=== PATIENT | female | born 1975 | race Caucasian/White ===

== ENCOUNTER → 2018-09-02 16:06 | Outpatient (CLI) | payer OTHER, MEDICAID, SELFPAY ==
--- NOTE | 2018-09-02 | DI.RAD.S_ITS ---
PROCEDURE: XR LUMBAR SPINE MIN 4V INDICATIONS: LOW BACK PAIN TECHNIQUE: 5 views of the lumbar spine acquired including lateral imaging during flexion and extension positioning. COMPARISON: [facility], , L-SPINE MINIMUM 4 VIEWS, 06/14/2017, 13:39. FINDINGS: Bones: 5 nonrib-bearing vertebrae are present. There is normal bony alignment superiorly but at the L5-S1 level there is grade 1-2 anterolisthesis of L5, with associated disc height reduction and moderately severe bilateral facet osteoarthritis at that level. Appreciable reduced or increased anterolisthesis of L5 on S1 is not seen through the flexion/extension and neutral lateral imaging. No vertebral body compression fractures. No suspicious bony lesions. Soft tissues: Overlying bowel gas pattern is normal. No suspicious soft tissue calcifications. Flexion/extension: There is normal range of motion, with preserved normal alignment. IMPRESSION: Stable appearing Grade I-grade 2 anterolisthesis of L5 on S1 which does not improve or worsen with both flexion and extension. This is associated with moderately severe degenerative disc disease and facet osteoarthritis at that level. More superiorly there is only mild degenerative disc disease and facet osteoarthritis, previously present. Dictated by: Robby Sutherland M.D. on 09/02/2018 at 17:00 Approved by: Robby Sutherland M.D. on 09/02/2018 at 17:02
== END ==
PROVIDERS: Family Provider Family Medicine; PCP Family Medicine; Visit Provider Family Medicine
DX: M51.37 Other intervertebral disc degeneration, lumbosacral region (principal); M47.817 Spondylosis without myelopathy or radiculopathy, lumbosacral region; M43.17 Spondylolisthesis, lumbosacral region; M54.5 Low back pain
CPT/HCPCS: 72110

== ENCOUNTER → 2019-01-23 06:08 | Outpatient (CLI) | payer OTHER, MEDICAID, SELFPAY ==
--- NOTE | 2019-01-23 | DI.MRI.S_ITS ---
PROCEDURE: MR LUMBAR SPINE WO/W CON INDICATIONS: BACK PAIN HX OF FUSION TECHNIQUE: Noncontrast sagittal T1 spin echo and T2 fast spin echo, sagittal STIR, axial T1 and T2 fast spin echo through the lumbar spine. In cases with scoliosis, additional coronal T2 fast spin echo may be performed. After the administration of contrast, sagittal and axial T1 spin echo with fat saturation through the lumbar spine. COMPARISON: [facility], CR, XR LUMBAR SPINE MIN 4V, 09/02/2018, 15:49. FINDINGS: Image quality: Mildly degraded by patient motion during image acquisition on several pulse sequences. The study remains diagnostic. Alignment and curvature: There is normal bony alignment superiorly but Grade I-2 anterolisthesis of L5 on S1 is noted again. This was present on prior plain film imaging. Marrow: Marrow is of normal overall signal. No acute vertebral body compression fractures. No suspicious marrow enhancement. Spinal cord: Conus medullaris terminates at the L1 level. Visualized spinal cord demonstrates normal signal, without suspicious enhancement. Paraspinous soft tissues: No paravertebral masses or abnormal enhancement. L1-L2: Normal appearance. L2-L3: Normal appearance. L3-L4: Normal appearance except for mild facet osteoarthritis. L4-L5: Normal appearance except for mild to moderate facet osteoarthritis, and ligamentum flavum hypertrophy that is likely greater on the right than the left. This results in asymmetric minimal spinal stenosis, right greater than left, and mild to moderate right and moderate left foraminal stenosis. There is potential for asymmetric impingement on the course of the L4 nerve roots. L5-S1: 1 appears to be prior laminectomy at L5 and bilateral osseous fusion has been performed. A metallic fixation devices are not present. There is a moderately severe degree of degenerative disc disease at L5-S1 with disc height reduction and disc desiccation and a small degree of adjacent marrow edema. There is a small disc bulge extending anteriorly, but the spinal canal at this level is not encroached upon by disc protrusion or disc herniation. There is, however, secondary foraminal stenosis at this level from prior facet osteoarthritis. Disc height reduction noted is mild to moderate.. IMPRESSION: The degenerative changes are relatively mild along the lumbosacral spine except at the facet joints from T12-L1 through L4-L5. No acute disease. At the L5-S1 level there is grade 1-2 anterolisthesis which contributes to presence of both spinal and foraminal stenosis at this level. A disc herniation is not found. Postsurgical changes appeared to represent sequela of laminectomy at L5 and posterior element osseous fusion. No inflammatory process is seen in the operative bed. Dictated by: Robby Sutherland M.D. on 01/23/2019 at 12:27 Approved by: Robby Sutherland M.D. on 01/23/2019 at 12:38
== END ==
PROVIDERS: Family Provider Family Medicine; PCP Family Medicine; Visit Provider Family Medicine
DX: M54.9 Dorsalgia, unspecified (principal); M47.816 Spondylosis without myelopathy or radiculopathy, lumbar region; M47.817 Spondylosis without myelopathy or radiculopathy, lumbosacral region; M43.17 Spondylolisthesis, lumbosacral region; M48.07 Spinal stenosis, lumbosacral region; Z98.1 Arthrodesis status
CPT/HCPCS: 72158

== ENCOUNTER 2021-10-28 10:17 | Inpatient (IN) | payer OTHER, MEDICAID, SELFPAY ==
[2021-10-28] VITALS (62 sets, daily range): BP systolic 79–131; BP diastolic 52–69; PULSE 57–98; RESP 15–42; TEMP 36.4–36.7; O2SAT 90–100; BMI 25.0
--- NOTE | 2021-10-28 10:28 | DI.RAD.S_ITS ---
PROCEDURE: XR CHEST 1V INDICATIONS: flu-like symptoms TECHNIQUE: One view of the chest was acquired. COMPARISON: [facility], , CHEST 1VW (PORTABLE), 02/28/2014, 19:22. FINDINGS: Surgical changes and devices: None. Lungs and pleura: Airspace opacity in the left lower lung zone, concerning for pneumonic infiltrate. No pleural effusions or pneumothorax. Mediastinum: Mediastinal contours appear normal. Heart size is normal. Bones and chest wall: No suspicious bony lesions. Overlying soft tissues appear unremarkable. IMPRESSION: Left lower lung zone pneumonic infiltrate. Dictated by: David Rodriguez M.D. on 10/28/2021 at 11:36 Approved by: David Rodriguez M.D. on 10/28/2021 at 11:37
[2021-10-28 10:55] LABS: Add Manual Diff / Slide Review NO; Basophils Absolute Auto 0 /uL (0-100); Basophils Percent Auto 0.1 % (0-2); Eosinophils Absolute Auto 0 /uL (0-450); Hematocrit 38.7 % (36-46); Lymphocytes Absolute Auto 600 /uL (1100-4500); Lymphocytes Percent Auto 23.9 % (25-40); Mean Corpuscular HGB Conc 33.7 % (30-36); Mean Corpuscular Hemoglobin 29.6 PG (26-34); Mean Corpuscular Volume 87.7 fL (80-100); Monocytes Absolute Auto 100 /uL (0-900); Monocytes Percent Auto 5.2 % (3-14); Neutrophils Absolute Auto 1900 /uL (1500-7000); Neutrophils Percent Auto 70.8 % (50-75); Platelet Count 93 X10^3/uL (150-400); Red Blood Cell Count 4.41 X10^6/uL (4.0-5.2); Red Cell Distribution Width 12.6 % (11.6-14.8); White Blood Cell Count 2.7 X10^3/uL (4.5-11.0)
--- NOTE | 2021-10-28 10:58 | ED.SOB ---
HPI - SOB/Dyspnea General Chief Complaint: Shortness of Breath/Dyspnea Stated Complaint: COUGHING/BODY ACHES/VOMITTING/CHEST PAIN Time Seen by Provider: 10/28/21 10:53 History of Present Illness HPI Narrative: The patient has been ill for approximately 2 weeks. She became ill shortly after Thanksgiving. She up cough. She has developed abdominal pain with nausea vomiting. She has significant decreased appetite. She denies headache, sore throat, or change in taste or smell. She has received COVID-19 vaccines. She has a cough, occasionally productive. O2 sats at triage were 90% on room air. She has no chronic lung disease. She denies chest pain. She is weak, experiencing near syncope any time she tries to stand. She has little to eat only recent days. She has upper abdominal pain exacerbated by eating, resulting nausea and vomiting. She did have urine output this morning, no dysuria. Pain is in the right upper abdomen. She has no history of chronic GI issues, she has no history of gallbladder disease. She has no associated back pain. She does have fever upon arrival. Related Data Home Medications Medication Instructions Recorded Confirmed acyclovir 400 mg tablet 1,200 mg PO BEDTIME 10/28/21 10/28/21 bupropion HCl 100 mg tablet,12 hr 100 mg PO BEDTIME 10/28/21 10/28/21 sustained-release clonazepam 0.5 mg tablet 0.5 mg PO DAILY PRN 10/28/21 10/28/21 doxycycline hyclate 100 mg tablet 200 mg PO BEDTIME 10/28/21 10/28/21 lamotrigine 25 mg tablet 100 mg PO BEDTIME 10/28/21 10/28/21 meloxicam 7.5 mg tablet 7.5 mg PO DAILY PRN 10/28/21 10/28/21 paroxetine HCl 40 mg tablet 40 mg PO BEDTIME 10/28/21 10/28/21 trazodone 50 mg tablet 50 mg PO BEDTIME 10/28/21 10/28/21 Allergies Allergy/AdvReac Type Severity Reaction Status Date / Time Opioids-Meperidine and Allergy Severe Vomiting Verified 10/28/21 11:03 Related Review of Systems Constitutional Constitutional: Reports body ache(s), Denies chills, Denies excessive sweating, Denies fever(s), Denies headache(s), Reports lethargy, Reports malaise and Reports weakness Eyes Eyes: Denies blurry vision and Denies change in vision ENT Ears, Nose, Mouth, and Throat: Denies vertigo, Reports dizziness, Denies facial pain, Denies headache(s) and Denies sore throat Cardiovascular Cardiovascular: Denies chest pain, Denies rapid heart rate and Reports dyspnea Respiratory Respiratory: Reports chest congestion, Reports cough and Reports dyspnea Gastrointestinal Gastrointestinal: Reports abdominal pain, Denies hematochezia, Denies change in bowel habits, Reports nausea, Reports vomiting and Reports other (Loss of appetite) Genitourinary Genitourinary: Denies dysuria Musculoskeletal Musculoskeletal: Reports arthralgias, Reports myalgias, Denies numbness and Reports stiffness Neurologic Neurologic: Denies confusion, Denies vertigo, Reports dizziness, Denies headache(s), Denies numbness and Reports weakness Psychiatric Psychiatric: Denies anxiety, Denies confusion and Denies depression Endocrine Endocrine: Denies excessive sweating and Reports other (No significant recent weight loss) Hematologic/Lymphatic On Anticoagulants: No Patient History Medical History (Updated 10/28/21 @ 19:58 by Woo Poon MD) Depression Surgical History History of carpal tunnel repair History of spinal fusion Status post tonsillectomy and adenoidectomy Social History Smoking Status: Current every day smoker Exam Initial Vital Signs Initial Vital Signs: Vital Signs Temperature 98.1 F 10/28/21 10:20 Pulse Rate 94 H 10/28/21 10:20 Respiratory Rate 38 H 10/28/21 10:20 Blood Pressure 115/67 10/28/21 10:20 Pulse Oximetry 90 L 10/28/21 10:20 Const General: cooperative, acute distress and ill appearing [facility] Head: normocephalic, atraumatic and No scalp tenderness Ears: TM's normal bilaterally Nose: external nose normal Face and sinus: normal facial exam Mouth: lip normal and other (Dry oral mucosa) Eyes General: appearance normal, both eyes and all related structures Pupils: PERRL EOM: EOM intact bilaterally Neck Neck: normal visual inspection, No lymphadenopathy and No JVD Chest Chest: normal inspection of the chest and No crepitus Resp Effort & Inspection: normal respiratory effort and no respiratory distress Auscultation: clear to auscultation bilaterally Cardio Palpation: normal PMI Rate: regular rate Rhythm: regular rhythm Heart Sounds: S1 normal and S2 normal GI Inspection: normal to inspection Palpation: soft, No hepatomegaly and tender (Right upper quadrant tenderness, without guarding or rebound.) Percussion: normal to percussion Auscultation: normal bowel sounds Back/Spine/Pelvis Back: normal to inspection and No back tenderness Skin General: no rashes or lesions noted Neuro General: patient alert, patient awake, patient oriented x3 and no focal motor deficits Extrem General: normal to inspection, full ROM, no pedal edema and no calf tenderness Psych Appearance: disheveled and other (Appears ill. Cooperative with evaluation.) Course Course Course Narrative: The patient O2 sats 90% on room air upon arrival. COVID testing is positive. Chest x-ray was consistent with infiltrate. CT more specifically suggestive viral infiltrate consistent with COVID 19 infection. Her WBC count is low. Lactic acid and procalcitonin are normal. LFTs are normal. She was given IV fluids at 2:50 a.m. prior due to low blood pressure and clinical dehydration. Her O2 sats increased from 90-97% on 2 L nasal cannula. She requires admission to the hypoxia, and the severe dehydration status. Rehydration is as low paced due to COVID. Blood pressure ranged from 80 to 100s systolic. She is not tachycardic. COVID treatment was initiated in the ER. I gave her dexamethasone, the 1st dose of remdesivir, and continued IV hydration. Hospitalist consult contacted, accepted the patient for admission. Orders Ordered: ED Orders 10/28/21 10:54 Test Urine Stat Urinalysis and Microscopic Stat Urine Culture Stat 10/28/21 10:55 Lipase Stat 10/28/21 12:06 CT angio chest PE protocol Stat Acetaminophen (Acetaminophen 325 Mg Tablet) 650 mg PO Q6HR PRN PRN Reason: Fever/Mild Pain (1-3) Acyclovir (Acyclovir 400 Mg Tablet) 1,200 mg PO BEDTIME JESSICA Bupropion HCl (Bupropion Sr 100 Mg Tab) 100 mg PO BEDTIME JESSICA Clonazepam (Clonazepam 0.5 Mg Tablet) 0.5 mg PO DAILY PRN PRN Reason: Anxiety Dexamethasone (Dexamethasone 10 Mg/Ml Vial) 6 mg IV DAILY [facility] Enoxaparin Sodium (Enoxaparin 40 Mg/0.4 Ml Syringe) 40 mg SUBCUT DAILY [facility] Remdesivir 100 mg/ Sodium (Chloride) 250 mls @ 250 mls/hr IV DAILY@1500 JESSICA Stop: 11/01/21 15:59 Lamotrigine (Lamotrigine 100 Mg Tablet) 100 mg PO BEDTIME [facility] Ondansetron HCl (Ondansetron 4 Mg/2 Ml Inj) 4 mg IV Q8HR PRN PRN Reason: Nausea And Vomiting Paroxetine HCl (Paroxetine 20 Mg Tablet) 40 mg PO BEDTIME [facility] Discontinued Medications Acetaminophen (Acetaminophen 325 Mg Tablet) 975 mg PO NOW ONE Stop: 10/28/21 11:18 Last Admin: 10/28/21 11:54 Dose: 975 mg Documented by: CATHY Dexamethasone (Dexamethasone 10 Mg/Ml Vial) 10 mg IV NOW ONE Stop: 10/28/21 14:13 Last Admin: 10/28/21 14:49 Dose: 10 mg Documented by: LUPILLOOR Sodium Chloride (Normal Saline 0.9%) 1,000 mls @ 250 mls/hr IV CONT [facility] Last Infusion: 10/28/21 14:57 Dose: 0 mls/hr Documented by: Admin: 10/28/21 11:00 Dose: 250 mls/hr Documented by: RAYNE Remdesivir 200 mg/ Sodium (Chloride) 250 mls @ 250 mls/hr IV NOW ONE Stop: 10/28/21 15:11 Last Infusion: 10/28/21 15:56 Dose: 0 mls/hr Documented by: Admin: 10/28/21 14:48 Dose: 250 mls/hr Documented by: CATHY Ketorolac Tromethamine (Ketorolac 30 Mg/Ml Vial) 15 mg IV NOW ONE Stop: 10/28/21 14:13 Last Admin: 10/28/21 14:49 Dose: 15 mg Documented by: CATHY Ondansetron HCl (Ondansetron 4 Mg/2 Ml Inj) 4 mg IV NOW ONE Stop: 10/28/21 11:18 Last Admin: 10/28/21 11:27 Dose: 4 mg Documented by: CATHY Vital Signs Vital signs: Vital Signs - 8 hr 10/28/21 11:50 10/28/21 11:55 10/28/21 12:00 Pulse Rate 80 80 82 Respiratory Rate 31 H 26 H 25 H Blood Pressure 100/59 L 99/58 L Pulse Oximetry 100 99 100 10/28/21 12:03 10/28/21 12:05 10/28/21 12:10 Pulse Rate 82 81 78 Respiratory Rate 28 H 21 28 H Blood Pressure 107/58 L 106/60 110/64 Pulse Oximetry 98 100 100 10/28/21 12:15 10/28/21 12:20 10/28/21 12:25 Pulse Rate 79 76 77 Respiratory Rate 27 H 24 26 H Blood Pressure 109/67 109/67 131/62 Pulse Oximetry 98 97 97 10/28/21 12:30 10/28/21 12:35 10/28/21 12:40 Pulse Rate 75 80 79 Respiratory Rate 32 H 20 22 Blood Pressure 109/62 106/62 103/60 Pulse Oximetry 97 98 98 10/28/21 12:45 10/28/21 12:59 10/28/21 13:00 Pulse Rate 80 74 72 Respiratory Rate 24 24 Blood Pressure 105/62 Pulse Oximetry 98 97 98 10/28/21 13:04 10/28/21 13:10 10/28/21 13:15 Pulse Rate 71 71 80 Respiratory Rate 18 23 23 Blood Pressure 103/55 L 107/59 L Pulse Oximetry 98 98 10/28/21 13:20 10/28/21 13:30 10/28/21 13:40 Pulse Rate 69 72 72 Respiratory Rate 30 H 24 22 Blood Pressure 99/63 Pulse Oximetry 98 98 98 10/28/21 13:45 10/28/21 13:50 10/28/21 14:00 Pulse Rate 70 70 68 Respiratory Rate 22 21 23 Blood Pressure 99/59 L 91/52 L Pulse Oximetry 98 99 99 10/28/21 14:10 Pulse Rate 66 Respiratory Rate 23 Blood Pressure Pulse Oximetry 99 MDM - SOB/Dyspnea Lab Data Result diagrams: 10/28/21 10:30 10/28/21 10:30 Labs: Lab Results 10/28/21 10/28/21 10/28/21 Range/Units 10:30 10:30 10:30 WBC 2.7 L (4.5-11.0) X10^3/uL RBC 4.41 (4.0-5.2) X10^6/uL Hgb 13.0 (12.0-16.0) g/dL Hct 38.7 (36-46) % MCV 87.7 (80-100) fL MCH 29.6 (26-34) PG MCHC 33.7 (30-36) % RDW 12.6 (11.6-14.8) % Plt Count 93 L (150-400) X10^3/uL Neut % (Auto) 70.8 (50-75) % Lymph % (Auto) 23.9 L (25-40) % [place] % (Auto) 5.2 (3-14) % Eos % (Auto) 0.0 L (2-4) % Baso % (Auto) 0.1 (0-2) % Neut # (Auto) 1900 (8656-2021) /uL Lymph # (Auto) 600 L (4653-3415) /uL [place] # (Auto) 100 (0-900) /uL Eos # (Auto) 0 (0-450) /uL Baso # (Auto) 0 (0-100) /uL D-Dimer 318 H (<230) ng/mL Sodium 136 L (137-145) mmol/L Potassium 3.8 (3.4-5.1) mmol/L Chloride 101 (98-107) mmol/L Carbon Dioxide 25 (22-32) mmol/L BUN 14 (7-17) mg/dL Creatinine 0.69 (0.52-1.04) mg/dL Estimated GFR > 60.0 (>60) mL/min BUN/Creatinine Ratio 20.3 (6-22) Glucose 107 H (70-100) mg/dL Lactate (0.7-2.1) mmol/L Calcium 8.7 (8.4-10.2) mg/dL Ferritin 492 H (6-137) ng/mL Total Bilirubin 0.5 (0.2-1.3) mg/dL AST 53 H (14-36) IU/L ALT 24 (<35) IU/L Alkaline Phosphatase 46 (38-126) U/L Lactate Dehydrogenase (313-618) U/L Total Creatine Kinase 57 (30-135) U/L CK-MB (CK-2) TNP CK-MB (CK-2) Rel Index TNP Troponin I < 0.012 (0.01-0.034) ng/mL C-Reactive Protein 2.5 H (<1.0) mg/dL NT-Pro-B Natriuret Pep 31 (<125) pg/mL Total Protein 7.5 (6.3-8.2) g/dL Albumin 4.3 (3.5-5.0) g/dL Globulin 3.2 (1.7-4.1) g/dL Albumin/Globulin Ratio 1.3 (1.0-2.8) Lipase (23-300) U/L Procalcitonin 0.08 (<0.5) ng/mL Urine Color Urine Appearance Urine pH (4.5-8.0) Ur Specific [place] (1.000-1.035) Urine Protein (Negative) Urine Glucose (UA) (Negative) g/dL Urine Ketones (NEGATIVE) Urine Occult Blood (Negative) Urine Nitrate (Negative) Urine Bilirubin (NEGATIVE) Urine Urobilinogen (0.2) E.U./dL Ur Leukocyte Esterase (NEGATIVE) Urine RBC (0-5/HPF) Urine WBC (0-5/HPF) Ur Squamous Epith Cells (0-5/HPF) Amorphous Sediment Urine Bacteria (None) Urine Mucus (Negative) Ur Culture Indicated? Urine Test (Negative) SARS-CoV-2 (PCR) (Negative) 10/28/21 10/28/21 10/28/21 Range/Units 10:30 10:30 10:30 WBC (4.5-11.0) X10^3/uL RBC (4.0-5.2) X10^6/uL Hgb (12.0-16.0) g/dL Hct (36-46) % MCV (80-100) fL MCH (26-34) PG MCHC (30-36) % RDW (11.6-14.8) % Plt Count (150-400) X10^3/uL Neut % (Auto) (50-75) % Lymph % (Auto) (25-40) % [place] % (Auto) (3-14) % Eos % (Auto) (2-4) % Baso % (Auto) (0-2) % Neut # (Auto) (6981-9400) /uL Lymph # (Auto) (0248-4520) /uL [place] # (Auto) (0-900) /uL Eos # (Auto) (0-450) /uL Baso # (Auto) (0-100) /uL D-Dimer (<230) ng/mL Sodium (137-145) mmol/L Potassium (3.4-5.1) mmol/L Chloride (98-107) mmol/L Carbon Dioxide (22-32) mmol/L BUN (7-17) mg/dL Creatinine (0.52-1.04) mg/dL Estimated GFR (>60) mL/min BUN/Creatinine Ratio (6-22) Glucose (70-100) mg/dL Lactate 1.0 (0.7-2.1) mmol/L Calcium (8.4-10.2) mg/dL Ferritin (6-137) ng/mL Total Bilirubin (0.2-1.3) mg/dL AST (14-36) IU/L ALT (<35) IU/L Alkaline Phosphatase (38-126) U/L Lactate Dehydrogenase 735 H (313-618) U/L Total Creatine Kinase (30-135) U/L CK-MB (CK-2) CK-MB (CK-2) Rel Index Troponin I (0.01-0.034) ng/mL C-Reactive Protein (<1.0) mg/dL NT-Pro-B Natriuret Pep (<125) pg/mL Total Protein (6.3-8.2) g/dL Albumin (3.5-5.0) g/dL Globulin (1.7-4.1) g/dL Albumin/Globulin Ratio (1.0-2.8) Lipase (23-300) U/L Procalcitonin (<0.5) ng/mL Urine Color Urine Appearance Urine pH (4.5-8.0) Ur Specific [place] (1.000-1.035) Urine Protein (Negative) Urine Glucose (UA) (Negative) g/dL Urine Ketones (NEGATIVE) Urine Occult Blood (Negative) Urine Nitrate (Negative) Urine Bilirubin (NEGATIVE) Urine Urobilinogen (0.2) E.U./dL Ur Leukocyte Esterase (NEGATIVE) Urine RBC (0-5/HPF) Urine WBC (0-5/HPF) Ur Squamous Epith Cells (0-5/HPF) Amorphous Sediment Urine Bacteria (None) Urine Mucus (Negative) Ur Culture Indicated? Urine Test (Negative) SARS-CoV-2 (PCR) Positive H (Negative) 10/28/21 10/28/21 10/28/21 Range/Units 10:30 10:54 10:54 WBC (4.5-11.0) X10^3/uL RBC (4.0-5.2) X10^6/uL Hgb (12.0-16.0) g/dL Hct (36-46) % MCV (80-100) fL MCH (26-34) PG MCHC (30-36) % RDW (11.6-14.8) % Plt Count (150-400) X10^3/uL Neut % (Auto) (50-75) % Lymph % (Auto) (25-40) % [place] % (Auto) (3-14) % Eos % (Auto) (2-4) % Baso % (Auto) (0-2) % Neut # (Auto) (0979-1668) /uL Lymph # (Auto) (3950-7437) /uL [place] # (Auto) (0-900) /uL Eos # (Auto) (0-450) /uL Baso # (Auto) (0-100) /uL D-Dimer (<230) ng/mL Sodium (137-145) mmol/L Potassium (3.4-5.1) mmol/L Chloride (98-107) mmol/L Carbon Dioxide (22-32) mmol/L BUN (7-17) mg/dL Creatinine (0.52-1.04) mg/dL Estimated GFR (>60) mL/min BUN/Creatinine Ratio (6-22) Glucose (70-100) mg/dL Lactate (0.7-2.1) mmol/L Calcium (8.4-10.2) mg/dL Ferritin (6-137) ng/mL Total Bilirubin (0.2-1.3) mg/dL AST (14-36) IU/L ALT (<35) IU/L Alkaline Phosphatase (38-126) U/L Lactate Dehydrogenase (313-618) U/L Total Creatine Kinase (30-135) U/L CK-MB (CK-2) CK-MB (CK-2) Rel Index Troponin I (0.01-0.034) ng/mL C-Reactive Protein (<1.0) mg/dL NT-Pro-B Natriuret Pep (<125) pg/mL Total Protein (6.3-8.2) g/dL Albumin (3.5-5.0) g/dL Globulin (1.7-4.1) g/dL Albumin/Globulin Ratio (1.0-2.8) Lipase (23-300) U/L Procalcitonin (<0.5) ng/mL Urine Color Yellow Urine Appearance Clear Urine pH 6.5 (4.5-8.0) Ur Specific [place] 1.020 (1.000-1.035) Urine Protein 2+ H (Negative) Urine Glucose (UA) Negative (Negative) g/dL Urine Ketones 1+ H (NEGATIVE) Urine Occult Blood Negative (Negative) Urine Nitrate Negative (Negative) Urine Bilirubin Negative (NEGATIVE) Urine Urobilinogen 1.0 (0.2) E.U./dL Ur Leukocyte Esterase Trace H (NEGATIVE) Urine RBC None seen (0-5/HPF) Urine WBC 1-5/hpf (0-5/HPF) Ur Squamous Epith Cells 0-1 /hpf (0-5/HPF) Amorphous Sediment 1+ Urine Bacteria Occasional (0-1) (None) Urine Mucus 3+ H (Negative) Ur Culture Indicated? Specimen cultured Urine Test Negative (Negative) SARS-CoV-2 (PCR) Positive H (Negative) 10/28/21 Range/Units 10:55 WBC (4.5-11.0) X10^3/uL RBC (4.0-5.2) X10^6/uL Hgb (12.0-16.0) g/dL Hct (36-46) % MCV (80-100) fL MCH (26-34) PG MCHC (30-36) % RDW (11.6-14.8) % Plt Count (150-400) X10^3/uL Neut % (Auto) (50-75) % Lymph % (Auto) (25-40) % [place] % (Auto) (3-14) % Eos % (Auto) (2-4) % Baso % (Auto) (0-2) % Neut # (Auto) (1501-8516) /uL Lymph # (Auto) (0946-5493) /uL [place] # (Auto) (0-900) /uL Eos # (Auto) (0-450) /uL Baso # (Auto) (0-100) /uL D-Dimer (<230) ng/mL Sodium (137-145) mmol/L Potassium (3.4-5.1) mmol/L Chloride (98-107) mmol/L Carbon Dioxide (22-32) mmol/L BUN (7-17) mg/dL Creatinine (0.52-1.04) mg/dL Estimated GFR (>60) mL/min BUN/Creatinine Ratio (6-22) Glucose (70-100) mg/dL Lactate (0.7-2.1) mmol/L Calcium (8.4-10.2) mg/dL Ferritin (6-137) ng/mL Total Bilirubin (0.2-1.3) mg/dL AST (14-36) IU/L ALT (<35) IU/L Alkaline Phosphatase (38-126) U/L Lactate Dehydrogenase (313-618) U/L Total Creatine Kinase (30-135) U/L CK-MB (CK-2) CK-MB (CK-2) Rel Index Troponin I (0.01-0.034) ng/mL C-Reactive Protein (<1.0) mg/dL NT-Pro-B Natriuret Pep (<125) pg/mL Total Protein (6.3-8.2) g/dL Albumin (3.5-5.0) g/dL Globulin (1.7-4.1) g/dL Albumin/Globulin Ratio (1.0-2.8) Lipase 394 H (23-300) U/L Procalcitonin (<0.5) ng/mL Urine Color Urine Appearance Urine pH (4.5-8.0) Ur Specific [place] (1.000-1.035) Urine Protein (Negative) Urine Glucose (UA) (Negative) g/dL Urine Ketones (NEGATIVE) Urine Occult Blood (Negative) Urine Nitrate (Negative) Urine Bilirubin (NEGATIVE) Urine Urobilinogen (0.2) E.U./dL Ur Leukocyte Esterase (NEGATIVE) Urine RBC (0-5/HPF) Urine WBC (0-5/HPF) Ur Squamous Epith Cells (0-5/HPF) Amorphous Sediment Urine Bacteria (None) Urine Mucus (Negative) Ur Culture Indicated? Urine Test (Negative) SARS-CoV-2 (PCR) (Negative) Imaging Data Chest x-ray: Radiologist's Impression: [address] [address] XRay Report Signed Patient: Krista Morales MR#: [id number] : 1975 Acct:[id number] Age/Sex: 46 / F Date of Service: 10/28/21 Loc: ED Accession Number: [id number] ?? Procedure: XR chest 1V Ordering Provider: Woo Poon MD PROCEDURE:? XR CHEST 1V ? INDICATIONS:? flu-like symptoms ? TECHNIQUE:? One view of the chest was acquired.? ? COMPARISON:? formerly [facility], CHEST 1VW (PORTABLE), 02/28/2014, 19:22. ? FINDINGS:? ? Surgical changes and devices:? None.? ? Lungs and pleura:? Airspace opacity in the left lower lung zone, concerning for pneumonic infiltrate.? No pleural effusions or pneumothorax.? ? Mediastinum:? Mediastinal contours appear normal.? Heart size is normal.? ? Bones and chest wall:? No suspicious bony lesions.? Overlying soft tissues appear unremarkable.? ? IMPRESSION:? Left lower lung zone pneumonic infiltrate. ? ? Dictated by: David Rodriguez M.D. on 10/28/2021 at 11:36 ? ? Approved by: David Rodriguez M.D. on 10/28/2021 at 11:37?? CT scan - chest: Radiologist's Impression: [address] [address] XRay Report Signed Patient: Krista Morales MR#: [id number] : 1975 Acct:[id number] Age/Sex: 46 / F Date of Service: 10/28/21 Loc: ED Accession Number: [id number] ?? Procedure: XR chest 1V Ordering Provider: Woo Poon MD PROCEDURE:? XR CHEST 1V ? INDICATIONS:? flu-like symptoms ? TECHNIQUE:? One view of the chest was acquired.? ? COMPARISON:? formerly [facility], CHEST 1VW (PORTABLE), 02/28/2014, 19:22. ? FINDINGS:? ? Surgical changes and devices:? None.? ? Lungs and pleura:? Airspace opacity in the left lower lung zone, concerning for pneumonic infiltrate.? No pleural effusions or pneumothorax.? ? Mediastinum:? Mediastinal contours appear normal.? Heart size is normal.? ? Bones and chest wall:? No suspicious bony lesions.? Overlying soft tissues appear unremarkable.? ? IMPRESSION:? Left lower lung zone pneumonic infiltrate. ? ? Dictated by: David Rodriguez M.D. on 10/28/2021 at 11:36 ? ? Approved by: David Rodriguez M.D. on 10/28/2021 at 11:37?? Critical Care Time Critical Care Time Critical Care Time: Yes Total Critical Care Time: 45 Attestation: Critical care time included the initial assessment of the patient, as well as reassessments. Medical records are reviewed. X-ray and lab data was reviewed, multiple clinical decisions were made. The patient was informed of the clinical needs. The situation was discussed with the admitting hospitalist. Discharge Plan Departure Patient Disposition: Admitted As Inpatient Clinical Impression: COVID-19, Acute dehydration Admit Date/Time: 10/28/21 14:13 Admit Provider: Nathen Grady
[2021-10-28 10:59] LABS: COVID19 -Nasal RAPID POSITIVE (Negative)
[2021-10-28] MEDS: SODIUM CHLORIDE 0.9% 1,000 ML 250 ML IV (11:00)
[2021-10-28 11:01] LABS: D Dimer 318 ng/mL (<230)
[2021-10-28 11:04] LABS: Lactate Dehydrogenase 735 U/L (313-618)
[2021-10-28 11:06] LABS: Alanine Aminotransferase 24 IU/L (<35); Albumin 4.3 g/dL (3.5-5.0); Albumin Globulin Ratio 1.3 (1.0-2.8); Alkaline Phosphatase 46 U/L (38-126); Aspartate Aminotransferase 53 IU/L (14-36); BUN Creatinine Ratio 20.3 (6-22); Bilirubin Total 0.5 mg/dL (0.2-1.3); Blood Urea Nitrogen 14 mg/dL (7-17); C-Reactive Protein Quant 2.5 mg/dL (<1.0); Calcium 8.7 mg/dL (8.4-10.2); Carbon Dioxide 25 mmol/L (22-32); Chloride 101 mmol/L (98-107); Creatine Kinase 57 U/L (30-135); Estimated Glomerular Filt Rate > 60.0 mL/min (>60); Globulin 3.2 g/dL (1.7-4.1); Glucose 107 mg/dL (70-100); HEMOLYSIS < 15 (0-50); Potassium 3.8 mmol/L (3.4-5.1); Sodium 136 mmol/L (137-145); Total Protein 7.5 g/dL (6.3-8.2)
[2021-10-28 11:15] LABS: NT-proBNP (BNP-Adult 18+) 31 pg/mL (<125); Troponin I < 0.012 ng/mL (0.01-0.034)
[2021-10-28 11:20] LABS: Procalcitonin 0.08 ng/mL (<0.5)
[2021-10-28 11:24] LABS: Lipase 394 U/L (23-300)
[2021-10-28] MEDS: ONDANSETRON 4 MG/2 ML INJ IV (11:27)
[2021-10-28 11:32] LABS: COVID19 - ADMIT (NP swab/PCR) POSITIVE (Negative)
[2021-10-28 11:38] LABS: Ferritin 492 ng/mL (6-137)
[2021-10-28] MEDS: ACETAMINOPHEN 325 MG TABLET 975 MG PO (11:54)
--- NOTE | 2021-10-28 12:06 | DI.CT.S_ITS ---
PROCEDURE: CT ANGIO CHEST PE PROTOCOL INDICATIONS: Elevated D-dimer. COVID positive. TECHNIQUE: After the administration of intravenous contrast, 2 mm thick sections acquired from the pulmonary apices to the posterior costophrenic angles. 3-dimensional maximum intensity projection (MIP) coronal and sagittal reformats were then acquired through the thorax. For radiation dose reduction, the following was used: automated exposure control, adjustment of mA and/or kV according to patient size. COMPARISON: None. FINDINGS: Image quality: Excellent. Pulmonary arteries: Pulmonary arteries are normal in size, and demonstrate no intraluminal filling defects to suggest central pulmonary embolism. Lungs and pleura: Patchy consolidation and ground-glass opacities noted in the periphery of the lungs bilaterally. No pleural effusions or pneumothorax. Central and peripheral airways are patent. Mediastinum: Heart size is normal, without pericardial effusion. No mediastinal or hilar adenopathy. Thoracic aorta is normal in caliber and enhancement. Esophagus is normal in caliber, without hiatal hernia. Bones and chest wall: No suspicious bony lesions. Ribs and thoracic spine appear intact throughout. Thyroid gland is within normal limits where visualized. No axillary or supraclavicular adenopathy. Abdomen: Visualized upper abdominal solid organs appear normal in the early arterial phase of enhancement. IMPRESSION: 1. No pulmonary embolus. 2. Bilateral lung patchy ground-glass opacities and consolidation compatible with atypical/viral pneumonia. Dictated by: Tamy Alcantara MD, PhD on 10/28/2021 at 13:05 Approved by: Tamy Alcantara MD, PhD on 10/28/2021 at 13:08
[2021-10-28 12:29] LABS: Appearance Urine UA CLEAR; Bilirubin Urine UA NEGATIVE (NEGATIVE); Color Urine UA YELLOW; Glucose Urine UA NEGATIVE (Negative); Ketones Urine UA 1+ (NEGATIVE); Leukocyte Esterase Urine UA TRACE (NEGATIVE); Nitrite Urine UA NEGATIVE (Negative); Occult Blood Urine UA NEGATIVE (Negative); Protein Urine UA 2+ (Negative)
[2021-10-28 12:30] LABS: pH Urine UA 6.5 (4.5-8.0)
[2021-10-28 12:32] LABS: Pregnancy Test Urine Negative (Negative)
[2021-10-28 12:42] LABS: Amorphous Sediment Urine 1+; Bacteria Urine Occasional (0-1); Culture Indicated Urine Specimen Cultured; Mucus Urine 3+ (Negative); RBC Urine None Seen (0-5/HPF); Squamous Epithelial Cell Urine 0-1 /HPF (0-5/HPF); WBC Urine 1-5/HPF (0-5/HPF)
[2021-10-28] MEDS: REMDESIVIR 200 MG in SODIUM CHLORIDE 0.9% 210 ML 250 ML IV (14:48)
[2021-10-28] MEDS: KETOROLAC 30 MG/ML VIAL 15 MG IV (14:49)
[2021-10-28] MEDS: DEXAMETHASONE 10 MG/ML VIAL IV (14:49)
--- NOTE | 2021-10-28 15:25 | P.HP_ITS ---
History of Present Illness History of Present Illness Date Patient Seen: 10/28/21 Time Patient Seen: 14:30 Chief complaint: COUGHING/BODY ACHES/VOMITTING/CHEST PAIN Narrative: Ms. Twin Chakraborty is a 46W with PMH depression who comes in with shortness of breath. She is unvaccinated against COVID. She was exposed to COVID over . She became ill shortly after that. She developed abdominal pain, cough, decreased appetite, malaise. Over the last few days she developed shortness of breath, she feels dizzy when standing. In the ED workup was done, vitals notable for tachypnea, O2 sats in high 80s to low 90s. Blood pressure slightly low in the 90s systolic. Labs notable for WBC 2.7, platelets 93, craetinine 0.69. Procal 0.08. Lactate 1.0. COVID positive. CTA chest showed no PE, but did show bilateral interstitial infiltrates. She was ordered for IV fluids, dexamethasone and remdesivir and admitted for further treatment. Family history: Patient denies any medical issues in the family Patient History Surgical History History of carpal tunnel repair History of spinal fusion Status post tonsillectomy and adenoidectomy Family & Social History Safety & Behavioral: Feels Safe in Current Yes Environment Been Physically Hurt or No Threatened By a Person Tobacco & Substance use: Smoking Status Current every day smoker alcohol intake frequency 0-2 drinks per day Substance Use Type does not use Meds Home Medications and Allergies Home Medications Medication Instructions Recorded Confirmed Type acyclovir 400 mg tablet 1,200 mg PO BEDTIME 10/28/21 10/28/21 History bupropion HCl 100 mg tablet,12 hr 100 mg PO BEDTIME 10/28/21 10/28/21 History sustained-release clonazepam 0.5 mg tablet 0.5 mg PO DAILY PRN 10/28/21 10/28/21 History doxycycline hyclate 100 mg tablet 200 mg PO BEDTIME 10/28/21 10/28/21 History lamotrigine 25 mg tablet 100 mg PO BEDTIME 10/28/21 10/28/21 History meloxicam 7.5 mg tablet 7.5 mg PO DAILY PRN 10/28/21 10/28/21 History paroxetine HCl 40 mg tablet 40 mg PO BEDTIME 10/28/21 10/28/21 History trazodone 50 mg tablet 50 mg PO BEDTIME 10/28/21 10/28/21 History Allergies Allergy/AdvReac Type Severity Reaction Status Date / Time Opioids-Meperidine and Allergy Severe Vomiting Verified 10/28/21 11:03 Related Review of Systems Review of Systems Narrative: 14 systems reviewed and negative aside from HPI Exam Vital Signs (past 8 hours): - 10/28/21 10:20 10/28/21 10:40 10/28/21 10:45 Temperature 98.1 F Pulse Rate 94 H 96 H 96 H Respiratory Rate 38 H 34 H 34 H Blood Pressure 115/67 79/63 L 88/54 L Pulse Oximetry 90 L 96 96 10/28/21 11:05 10/28/21 11:10 10/28/21 11:15 Temperature Pulse Rate 79 83 81 Respiratory Rate 30 H 29 H 24 Blood Pressure 113/69 97/55 L 95/54 L Pulse Oximetry 97 99 100 10/28/21 11:20 10/28/21 11:25 10/28/21 11:30 Temperature Pulse Rate 78 79 98 H Respiratory Rate 30 H 15 42 H Blood Pressure 99/55 L 109/63 106/68 Pulse Oximetry 100 99 95 10/28/21 11:35 10/28/21 11:40 10/28/21 11:45 Temperature Pulse Rate 81 78 80 Respiratory Rate 18 22 15 Blood Pressure 109/62 109/64 102/57 L Pulse Oximetry 99 98 99 10/28/21 11:50 10/28/21 11:55 10/28/21 12:00 Temperature Pulse Rate 80 80 82 Respiratory Rate 31 H 26 H 25 H Blood Pressure 100/59 L 99/58 L Pulse Oximetry 100 99 100 10/28/21 12:03 10/28/21 12:05 10/28/21 12:10 Temperature Pulse Rate 82 81 78 Respiratory Rate 28 H 21 28 H Blood Pressure 107/58 L 106/60 110/64 Pulse Oximetry 98 100 100 10/28/21 12:15 10/28/21 12:20 10/28/21 12:25 Temperature Pulse Rate 79 76 77 Respiratory Rate 27 H 24 26 H Blood Pressure 109/67 109/67 131/62 Pulse Oximetry 98 97 97 10/28/21 12:30 10/28/21 12:35 10/28/21 12:40 Temperature Pulse Rate 75 80 79 Respiratory Rate 32 H 20 22 Blood Pressure 109/62 106/62 103/60 Pulse Oximetry 97 98 98 10/28/21 12:45 10/28/21 12:59 10/28/21 13:00 Temperature Pulse Rate 80 74 72 Respiratory Rate 24 24 Blood Pressure 105/62 Pulse Oximetry 98 97 98 10/28/21 13:04 10/28/21 13:10 10/28/21 13:15 Temperature Pulse Rate 71 71 80 Respiratory Rate 18 23 23 Blood Pressure 103/55 L 107/59 L Pulse Oximetry 98 98 10/28/21 13:20 10/28/21 13:30 10/28/21 13:40 Temperature Pulse Rate 69 72 72 Respiratory Rate 30 H 24 22 Blood Pressure 99/63 Pulse Oximetry 98 98 98 Oxygen Delivery Method Room Air Oxygen Flow Rate 2 Narrative Exam Narrative: GEN: mild distress, ill appearing HEENT: moist mucous membranes, PERRL NECK: trachea midline, no JVD PULM: poor air movement bilaterally CV: regular rate and rhythm, no murmurs ABD: soft, nontender, nondistended, no organomegaly, normal bowel sounds EXT: warm and well perfused with no edema SKIN: no rashes noted NEURO: awake, alert, oriented, no focal deficits Objective Labs Result Diagrams: 10/28/21 10:30 10/28/21 10:30 Labs: Laboratory Results - last 24 hr 10/28/21 10/28/21 10/28/21 10:30 10:30 10:30 WBC 2.7 L RBC 4.41 Hgb 13.0 Hct 38.7 MCV 87.7 MCH 29.6 MCHC 33.7 RDW 12.6 Plt Count 93 L Neut % (Auto) 70.8 Lymph % (Auto) 23.9 L [place] % (Auto) 5.2 Eos % (Auto) 0.0 L Baso % (Auto) 0.1 Neut # (Auto) 1900 Lymph # (Auto) 600 L [place] # (Auto) 100 Eos # (Auto) 0 Baso # (Auto) 0 D-Dimer 318 H Sodium 136 L Potassium 3.8 Chloride 101 Carbon Dioxide 25 BUN 14 Creatinine 0.69 Estimated GFR > 60.0 BUN/Creatinine Ratio 20.3 Glucose 107 H Lactate Calcium 8.7 Ferritin 492 H Total Bilirubin 0.5 AST 53 H ALT 24 Alkaline Phosphatase 46 Lactate Dehydrogenase Total Creatine Kinase 57 CK-MB (CK-2) TNP CK-MB (CK-2) Rel Index TNP Troponin I < 0.012 C-Reactive Protein 2.5 H NT-Pro-B Natriuret Pep 31 Total Protein 7.5 Albumin 4.3 Globulin 3.2 Albumin/Globulin Ratio 1.3 Lipase Procalcitonin 0.08 Urine Color Urine Appearance Urine pH Ur Specific [place] Urine Protein Urine Glucose (UA) Urine Ketones Urine Occult Blood Urine Nitrate Urine Bilirubin Urine Urobilinogen Ur Leukocyte Esterase Urine RBC Urine WBC Ur Squamous Epith Cells Amorphous Sediment Urine Bacteria Urine Mucus Ur Culture Indicated? Urine Test SARS-CoV-2 (PCR) 10/28/21 10/28/21 10/28/21 10:30 10:30 10:30 WBC RBC Hgb Hct MCV MCH MCHC RDW Plt Count Neut % (Auto) Lymph % (Auto) [place] % (Auto) Eos % (Auto) Baso % (Auto) Neut # (Auto) Lymph # (Auto) [place] # (Auto) Eos # (Auto) Baso # (Auto) D-Dimer Sodium Potassium Chloride Carbon Dioxide BUN Creatinine Estimated GFR BUN/Creatinine Ratio Glucose Lactate 1.0 Calcium Ferritin Total Bilirubin AST ALT Alkaline Phosphatase Lactate Dehydrogenase 735 H Total Creatine Kinase CK-MB (CK-2) CK-MB (CK-2) Rel Index Troponin I C-Reactive Protein NT-Pro-B Natriuret Pep Total Protein Albumin Globulin Albumin/Globulin Ratio Lipase Procalcitonin Urine Color Urine Appearance Urine pH Ur Specific [place] Urine Protein Urine Glucose (UA) Urine Ketones Urine Occult Blood Urine Nitrate Urine Bilirubin Urine Urobilinogen Ur Leukocyte Esterase Urine RBC Urine WBC Ur Squamous Epith Cells Amorphous Sediment Urine Bacteria Urine Mucus Ur Culture Indicated? Urine Test SARS-CoV-2 (PCR) Positive H 10/28/21 10/28/21 10/28/21 10:30 10:54 10:54 WBC RBC Hgb Hct MCV MCH MCHC RDW Plt Count Neut % (Auto) Lymph % (Auto) [place] % (Auto) Eos % (Auto) Baso % (Auto) Neut # (Auto) Lymph # (Auto) [place] # (Auto) Eos # (Auto) Baso # (Auto) D-Dimer Sodium Potassium Chloride Carbon Dioxide BUN Creatinine Estimated GFR BUN/Creatinine Ratio Glucose Lactate Calcium Ferritin Total Bilirubin AST ALT Alkaline Phosphatase Lactate Dehydrogenase Total Creatine Kinase CK-MB (CK-2) CK-MB (CK-2) Rel Index Troponin I C-Reactive Protein NT-Pro-B Natriuret Pep Total Protein Albumin Globulin Albumin/Globulin Ratio Lipase Procalcitonin Urine Color Yellow Urine Appearance Clear Urine pH 6.5 Ur Specific [place] 1.020 Urine Protein 2+ H Urine Glucose (UA) Negative Urine Ketones 1+ H Urine Occult Blood Negative Urine Nitrate Negative Urine Bilirubin Negative Urine Urobilinogen 1.0 Ur Leukocyte Esterase Trace H Urine RBC None seen Urine WBC 1-5/hpf Ur Squamous Epith Cells 0-1 /hpf Amorphous Sediment 1+ Urine Bacteria Occasional (0-1) Urine Mucus 3+ H Ur Culture Indicated? Specimen cultured Urine Test Negative SARS-CoV-2 (PCR) Positive H 10/28/21 10:55 WBC RBC Hgb Hct MCV MCH MCHC RDW Plt Count Neut % (Auto) Lymph % (Auto) [place] % (Auto) Eos % (Auto) Baso % (Auto) Neut # (Auto) Lymph # (Auto) [place] # (Auto) Eos # (Auto) Baso # (Auto) D-Dimer Sodium Potassium Chloride Carbon Dioxide BUN Creatinine Estimated GFR BUN/Creatinine Ratio Glucose Lactate Calcium Ferritin Total Bilirubin AST ALT Alkaline Phosphatase Lactate Dehydrogenase Total Creatine Kinase CK-MB (CK-2) CK-MB (CK-2) Rel Index Troponin I C-Reactive Protein NT-Pro-B Natriuret Pep Total Protein Albumin Globulin Albumin/Globulin Ratio Lipase 394 H Procalcitonin Urine Color Urine Appearance Urine pH Ur Specific [place] Urine Protein Urine Glucose (UA) Urine Ketones Urine Occult Blood Urine Nitrate Urine Bilirubin Urine Urobilinogen Ur Leukocyte Esterase Urine RBC Urine WBC Ur Squamous Epith Cells Amorphous Sediment Urine Bacteria Urine Mucus Ur Culture Indicated? Urine Test SARS-CoV-2 (PCR) Assessment & Plan Assessment & Plan narrative: Ms. Twin Chakraborty is a 46W who comes in to the hospital with shortenss of breath found to have COVID pneumonia. 1. Acute hypoxemic respiratory failure from COVID pneumonia -patient is unfortunately unvaccinated -desat to the upper 80s -COVID positive PCR, CT shows interstitial infiltrates -ordered for remdesivir, dexamethasone -oxygen goal >93% -encourage proning 2. Depression -continue paroxetine, clonazepam, bupropion, lamotrigine CODE: Full Proxy: Pablito Chakraborty, I have utilized all available resources to reconcile patient's medications Time Spent With Patient Critical Care time: I spent a total of [] minutes of critical care time on this patient's care today; this time is exclusive of procedural time. Quality MIPS - Admit I confirm the patient?s Advance Care Plan is present, Code status is documented, Surrogate decision maker is in patient?s record [If Yes, STOP here]: Yes
--- NOTE | 2021-10-28 18:58 | PC.NURSE ---
Pt arrived from ED at approximately 1835, transferred to bed via slide board. Per RN patient with feeling syncopal when sitting up and having lower BP's earlier today in the ED. Pt had been receiving IVF @200ml/hr and most recent BP's in low 100's. Pt is on 2 L NC, feeling fatigued with talking, and keeping her eyes closed. She denies pain, n/v and is OX3. She is afebrile. Telemetry placed on patient, and she is settled into her room and oriented to the bed, unit routines and call light. NSR-SB on Telemetry. Endorsed admission to oncoming shift RN.
[2021-10-28] MEDS: PARoxetine 20 MG TABLET 40 MG PO (21:57)
[2021-10-28] MEDS: ACYCLOVIR 400 MG TABLET 1200 MG PO (21:58)
[2021-10-28] MEDS: buPROPion SR 100 MG TAB PO (21:58)
[2021-10-28] MEDS: ACETAMINOPHEN 325 MG TABLET 650 MG PO (21:58)
[2021-10-28] MEDS: lamoTRIgine 100 MG TABLET PO (21:59)
[2021-10-29] VITALS (8 sets, daily range): BP systolic 94–116; BP diastolic 57–72; PULSE 64–74; RESP 12–18; TEMP 36.6–37.1; O2SAT 95–99
[2021-10-29 05:54] LABS: Blood Urea Nitrogen 18 mg/dL (7-17); Calcium 8.1 mg/dL (8.4-10.2); Carbon Dioxide 29 mmol/L (22-32); Chloride 105 mmol/L (98-107); Estimated Glomerular Filt Rate > 60.0 mL/min (>60); Glucose 138 mg/dL (70-100); HEMOLYSIS 17 (0-50); Potassium 3.9 mmol/L (3.4-5.1); Sodium 137 mmol/L (137-145)
[2021-10-29 06:03] LABS: Add Manual Diff / Slide Review NO; Basophils Absolute Auto 0 /uL (0-100); Basophils Percent Auto 0.2 % (0-2); Eosinophils Absolute Auto 0 /uL (0-450); Hematocrit 36.3 % (36-46); Hemoglobin 12.2 g/dL (12.0-16.0); Lymphocytes Absolute Auto 600 /uL (1100-4500); Lymphocytes Percent Auto 29.9 % (25-40); Mean Corpuscular HGB Conc 33.7 % (30-36); Mean Corpuscular Hemoglobin 29.7 PG (26-34); Monocytes Absolute Auto 100 /uL (0-900); Monocytes Percent Auto 7.2 % (3-14); Neutrophils Absolute Auto 1300 /uL (1500-7000); Neutrophils Percent Auto 62.7 % (50-75); Platelet Count 87 X10^3/uL (150-400); Red Blood Cell Count 4.12 X10^6/uL (4.0-5.2); Red Cell Distribution Width 12.9 % (11.6-14.8)
[2021-10-29] MEDS: DEXAMETHASONE 10 MG/ML VIAL 6 MG IV (08:21)
[2021-10-29] MEDS: ENOXAPARIN 40 MG/0.4 ML SYRINGE SUBCUT (08:21)
[2021-10-29] MEDS: ONDANSETRON 4 MG/2 ML INJ IV (08:33)
[2021-10-29] MEDS: SODIUM CHLORIDE 0.9% FLUSH 10 ML IV ×2 (08:36→20:44)
--- NOTE | 2021-10-29 10:28 | PM.PN.1 ---
Subjective Subjective Date Patient Seen: 10/29/21 Time Patient Seen: 08:00 Interval history: She has a headache, coughing, and shortness of breath. She looks more energetic, but she states she does not feel better. Exam Vital Signs (past 8 hours): - 10/29/21 06:50 10/29/21 08:50 10/29/21 09:02 Temperature 98.0 F Pulse Rate 70 Respiratory Rate 18 Blood Pressure 103/63 Pulse Oximetry 97 95 95 Oxygen Delivery Method Nasal Cannula Oxygen Flow Rate 2 Narrative Exam Narrative: GEN: no acute distress HEENT: moist mucous membranes, PERRL NECK: trachea midline, no JVD PULM: poor air movement bilaterally CV: regular rate and rhythm, no murmurs ABD: soft, nontender, nondistended, no organomegaly, normal bowel sounds EXT: warm and well perfused with no edema SKIN: no rashes noted NEURO: awake, alert, oriented, no focal deficits Objective Labs Result Diagrams: 10/29/21 05:20 10/29/21 05:20 Labs: Laboratory Results - last 24 hr 10/28/21 10/28/21 10/28/21 10:30 10:30 10:30 WBC 2.7 L RBC 4.41 Hgb 13.0 Hct 38.7 MCV 87.7 MCH 29.6 MCHC 33.7 RDW 12.6 Plt Count 93 L Neut % (Auto) 70.8 Lymph % (Auto) 23.9 L [place] % (Auto) 5.2 Eos % (Auto) 0.0 L Baso % (Auto) 0.1 Neut # (Auto) 1900 Lymph # (Auto) 600 L [place] # (Auto) 100 Eos # (Auto) 0 Baso # (Auto) 0 D-Dimer 318 H Sodium 136 L Potassium 3.8 Chloride 101 Carbon Dioxide 25 BUN 14 Creatinine 0.69 Estimated GFR > 60.0 BUN/Creatinine Ratio 20.3 Glucose 107 H Lactate Calcium 8.7 Ferritin 492 H Total Bilirubin 0.5 AST 53 H ALT 24 Alkaline Phosphatase 46 Lactate Dehydrogenase Total Creatine Kinase 57 CK-MB (CK-2) TNP CK-MB (CK-2) Rel Index TNP Troponin I < 0.012 C-Reactive Protein 2.5 H NT-Pro-B Natriuret Pep 31 Total Protein 7.5 Albumin 4.3 Globulin 3.2 Albumin/Globulin Ratio 1.3 Lipase Procalcitonin 0.08 Urine Color Urine Appearance Urine pH Ur Specific [place] Urine Protein Urine Glucose (UA) Urine Ketones Urine Occult Blood Urine Nitrate Urine Bilirubin Urine Urobilinogen Ur Leukocyte Esterase Urine RBC Urine WBC Ur Squamous Epith Cells Amorphous Sediment Urine Bacteria Urine Mucus Ur Culture Indicated? Urine Test SARS-CoV-2 (PCR) 10/28/21 10/28/21 10/28/21 10:30 10:30 10:30 WBC RBC Hgb Hct MCV MCH MCHC RDW Plt Count Neut % (Auto) Lymph % (Auto) [place] % (Auto) Eos % (Auto) Baso % (Auto) Neut # (Auto) Lymph # (Auto) [place] # (Auto) Eos # (Auto) Baso # (Auto) D-Dimer Sodium Potassium Chloride Carbon Dioxide BUN Creatinine Estimated GFR BUN/Creatinine Ratio Glucose Lactate 1.0 Calcium Ferritin Total Bilirubin AST ALT Alkaline Phosphatase Lactate Dehydrogenase 735 H Total Creatine Kinase CK-MB (CK-2) CK-MB (CK-2) Rel Index Troponin I C-Reactive Protein NT-Pro-B Natriuret Pep Total Protein Albumin Globulin Albumin/Globulin Ratio Lipase Procalcitonin Urine Color Urine Appearance Urine pH Ur Specific [place] Urine Protein Urine Glucose (UA) Urine Ketones Urine Occult Blood Urine Nitrate Urine Bilirubin Urine Urobilinogen Ur Leukocyte Esterase Urine RBC Urine WBC Ur Squamous Epith Cells Amorphous Sediment Urine Bacteria Urine Mucus Ur Culture Indicated? Urine Test SARS-CoV-2 (PCR) Positive H 10/28/21 10/28/21 10/28/21 10:30 10:54 10:54 WBC RBC Hgb Hct MCV MCH MCHC RDW Plt Count Neut % (Auto) Lymph % (Auto) [place] % (Auto) Eos % (Auto) Baso % (Auto) Neut # (Auto) Lymph # (Auto) [place] # (Auto) Eos # (Auto) Baso # (Auto) D-Dimer Sodium Potassium Chloride Carbon Dioxide BUN Creatinine Estimated GFR BUN/Creatinine Ratio Glucose Lactate Calcium Ferritin Total Bilirubin AST ALT Alkaline Phosphatase Lactate Dehydrogenase Total Creatine Kinase CK-MB (CK-2) CK-MB (CK-2) Rel Index Troponin I C-Reactive Protein NT-Pro-B Natriuret Pep Total Protein Albumin Globulin Albumin/Globulin Ratio Lipase Procalcitonin Urine Color Yellow Urine Appearance Clear Urine pH 6.5 Ur Specific [place] 1.020 Urine Protein 2+ H Urine Glucose (UA) Negative Urine Ketones 1+ H Urine Occult Blood Negative Urine Nitrate Negative Urine Bilirubin Negative Urine Urobilinogen 1.0 Ur Leukocyte Esterase Trace H Urine RBC None seen Urine WBC 1-5/hpf Ur Squamous Epith Cells 0-1 /hpf Amorphous Sediment 1+ Urine Bacteria Occasional (0-1) Urine Mucus 3+ H Ur Culture Indicated? Specimen cultured Urine Test Negative SARS-CoV-2 (PCR) Positive H 10/28/21 10/29/21 10/29/21 10:55 05:20 05:20 WBC 2.0 L RBC 4.12 Hgb 12.2 Hct 36.3 MCV 88.0 MCH 29.7 MCHC 33.7 RDW 12.9 Plt Count 87 L Neut % (Auto) 62.7 Lymph % (Auto) 29.9 [place] % (Auto) 7.2 Eos % (Auto) 0.0 L Baso % (Auto) 0.2 Neut # (Auto) 1300 L Lymph # (Auto) 600 L [place] # (Auto) 100 Eos # (Auto) 0 Baso # (Auto) 0 D-Dimer Sodium 137 Potassium 3.9 Chloride 105 Carbon Dioxide 29 BUN 18 H Creatinine 0.62 Estimated GFR > 60.0 BUN/Creatinine Ratio 29.0 H Glucose 138 H Lactate Calcium 8.1 L Ferritin Total Bilirubin AST ALT Alkaline Phosphatase Lactate Dehydrogenase Total Creatine Kinase CK-MB (CK-2) CK-MB (CK-2) Rel Index Troponin I C-Reactive Protein NT-Pro-B Natriuret Pep Total Protein Albumin Globulin Albumin/Globulin Ratio Lipase 394 H Procalcitonin Urine Color Urine Appearance Urine pH Ur Specific [place] Urine Protein Urine Glucose (UA) Urine Ketones Urine Occult Blood Urine Nitrate Urine Bilirubin Urine Urobilinogen Ur Leukocyte Esterase Urine RBC Urine WBC Ur Squamous Epith Cells Amorphous Sediment Urine Bacteria Urine Mucus Ur Culture Indicated? Urine Test SARS-CoV-2 (PCR) [facility] Medical History (Updated 10/28/21 @ 19:58 by Woo Poon MD) Depression Surgical History History of carpal tunnel repair History of spinal fusion Status post tonsillectomy and adenoidectomy Social History household members: significant other Smoking Status: Former smoker alcohol intake: never Assessment & Plan Assessment & Plan narrative: 1. Acute hypoxemic respiratory failure from COVID pneumonia -patient is unfortunately unvaccinated -desat to the upper 80s -COVID positive PCR, CT shows interstitial infiltrates -ordered for remdesivir, dexamethasone -oxygen goal >93% -encourage proning 2. Depression -continue paroxetine, clonazepam, bupropion, lamotrigine 3. Thrombocytopenia, leukopenia, acute -secondary to infection -monitor closely -no indication for transfusion currently CODE: Full Proxy: Pablito Chakraborty, I have utilized all available resources to reconcile patient's medications Time Spent With Patient Critical Care time: I spent a total of [] minutes of critical care time on this patient's care today; this time is exclusive of procedural time. Quality VTE Deep Vein Thrombosis/Pulmonary Embolism Present on Admission: No
--- NOTE | 2021-10-29 10:37 | CM.DANOTE ---
DCP Assessment: Patient is 46 yr old female who presented with respiratory distress and is currently covid + patient is unvaccinated. CM attempted to call patient in her room but their was no answer. CM will attempt to call again later. Cm called patients Pablito but received no answer. CM did brief assessment off of patients EMR. patient lives with her Pablito in [facility], was exposed to COVId during thanksgiving and is now not feeling well and is COVID +, CUrrently needing 2L o2 per NC . Patient still not feeling well but according to MD is looking better today. I: byron Plan: DC home with when medically stable- CM will follow patient and update DC plan as needed during patients stay. Ivy Frost Discharge Planning/Care Management CM Discharge Assessment Start: 10/29/21 10:34 Freq: Status: Active Protocol: Document 10/29/21 10:34 HS (Rec: 10/29/21 10:37 HS [id number]) Discharge Planning Assessment Assigned Building Construction Superintendent Ivy frost DPOA/Assigned Designee Name Pablito Chkaraborty (elio) Contact Information [phone] Advance Directives? No History Provided By Medical Record Has Patient been admitted in last 30 No days? Prior Living Arrangements House Household Members significant other Type of transporation used prior to Drives own vehicle admit Independent with ADL's Yes Is patient alert and oriented? Yes Comment anticipated DC home with spoaspen may need home O2 depending on course of Covid Pneumonia Barriers to Discharge No Discharge Plan Home Transportation Arrangement patients will provide transport home Referrals Initiated None needed Whiteboard Updated in Patient Room with No name and ext. # of Building Construction Superintendent Comment not able to go into patients room due to covid precautions Review Status In Process Next Review Type Continued Stay Review
--- NOTE | 2021-10-29 11:05 | PC.NURSE ---
Day shift: Pt reports that she quit smoking when she was 15.
--- NOTE | 2021-10-29 11:07 | PC.NURSE ---
Day shift: Instructed Pt on I.S. use today at approx 1100.
[2021-10-29] MEDS: REMDESIVIR 100 MG in SODIUM CHLORIDE 0.9% 230 ML 175 ML IV (14:03)
[2021-10-29] MEDS: ACETAMINOPHEN 325 MG TABLET 650 MG PO (14:20)
[2021-10-29] MEDS: ACYCLOVIR 400 MG TABLET 1200 MG PO (20:44)
[2021-10-29] MEDS: lamoTRIgine 100 MG TABLET PO (20:44)
[2021-10-29] MEDS: buPROPion SR 100 MG TAB PO (20:44)
[2021-10-29] MEDS: PARoxetine 20 MG TABLET 40 MG PO (20:44)
[2021-10-30] VITALS (8 sets, daily range): BP systolic 100–101; BP diastolic 59–61; PULSE 78–79; RESP 18–20; TEMP 37.4–38; O2SAT 93–97
[2021-10-30] MEDS: ONDANSETRON 4 MG/2 ML INJ IV (01:20)
[2021-10-30] MEDS: clonazePAM 0.5 MG TABLET PO (01:20)
--- NOTE | 2021-10-30 04:44 | PC.NURSE ---
Late entry: Patient was resting comfortably in bed at start of shift assessment with no complaints of pain, N/V, or SOB. Patient was on 1LNC with O2 sat around 97%. Around 0130 the patient used the call light and this RN answered the call. Patient was sitting up in bed crying and just kept stating that she did not feel well, she was sick of being sick and didn't understand why she wasn't better yet. Patient also stated that she was tired and nothing was helping her sleep. This RN tried to relieve some of the patient anxiety with relaxation techniques and distraction. When that did not work, 0.5mg Klonopin PO was given and the patient was finally able to get some rest around 0200. Patients O2 sat was holding at 97% so this RN took the NC off while in the room. The patient was able to hold an O2 sat between 95-97% so the NC was left off. Will continue to monitor and supplement O2 as needed.
[2021-10-30 06:02] LABS: Mean Corpuscular HGB Conc 33.2 % (30-36); Mean Corpuscular Hemoglobin 29.2 PG (26-34); Mean Corpuscular Volume 87.7 fL (80-100); Platelet Count 116 X10^3/uL (150-400); Red Blood Cell Count 4.11 X10^6/uL (4.0-5.2); Red Cell Distribution Width 12.9 % (11.6-14.8); White Blood Cell Count 4.6 X10^3/uL (4.5-11.0)
[2021-10-30 06:13] LABS: BUN Creatinine Ratio 23.6 (6-22); Blood Urea Nitrogen 17 mg/dL (7-17); Calcium 8.4 mg/dL (8.4-10.2); Carbon Dioxide 32 mmol/L (22-32); Chloride 104 mmol/L (98-107); Estimated Glomerular Filt Rate > 60.0 mL/min (>60); Glucose 94 mg/dL (70-100); HEMOLYSIS < 15 (0-50); Potassium 3.8 mmol/L (3.4-5.1); Sodium 138 mmol/L (137-145)
[2021-10-30] MEDS: METOCLOPRAMIDE 10 MG/2 ML INJ IV (06:20)
[2021-10-30] MEDS: ACETAMINOPHEN 325 MG TABLET 650 MG PO (06:21)
[2021-10-30] MEDS: SODIUM CHLORIDE 0.9% FLUSH 10 ML IV ×2 (06:22→08:15)
[2021-10-30] MEDS: ENOXAPARIN 40 MG/0.4 ML SYRINGE SUBCUT (08:15)
[2021-10-30] MEDS: DEXAMETHASONE 10 MG/ML VIAL 6 MG IV (08:15)
--- NOTE | 2021-10-30 09:01 | PC.NURSE ---
Day shift: Trina removed at approx [address] Miller.
[2021-10-30] MEDS: guaiFENesin Solution 100 MG/5 ML UDC 200 MG PO (09:48)
[2021-10-30] MEDS: guaiFENesin ER 600 MG TAB PO (09:48)
--- NOTE | 2021-10-30 10:00 | PC.NURSE ---
Day shift: Pt OOB and to BR to void (voided 300mls) post Mena. Washed hands at sink and back in bed. O2 94% on RA. Pt tolerated that activity. Gave cough meds per JAN as well.
--- NOTE | 2021-10-30 14:31 | PC.NURSE ---
Day shift: Pt able to ambulate arounf the room approx 5 times and HR 74 and O2 94% RA. Pt tolerated well. Dr Miller informed. Pt to d/c home today.
--- NOTE | 2021-10-30 14:34 | PM.DS.1 ---
History of Present Illness History of Present Illness Date Patient Seen: 10/30/21 Time Patient Seen: 14:34 Chief complaint: COUGHING/BODY ACHES/VOMITTING/CHEST PAIN Narrative: Ms. Twin Chakraborty is a 46W with PMH depression who comes in with shortness of breath. She is unvaccinated against COVID. She was exposed to COVID over . She became ill shortly after that. She developed abdominal pain, cough, decreased appetite, malaise. Over the last few days she developed shortness of breath, she feels dizzy when standing. In the ED workup was done, vitals notable for tachypnea, O2 sats in high 80s to low 90s. Blood pressure slightly low in the 90s systolic. Labs notable for WBC 2.7, platelets 93, craetinine 0.69. Procal 0.08. Lactate 1.0. COVID positive. CTA chest showed no PE, but did show bilateral interstitial infiltrates. She was ordered for IV fluids, dexamethasone and remdesivir and admitted for further treatment. Discharge Providers Provider Date of admission: 10/28/21 14:13 Discharge Date: 10/30/21 Primary care physician: Martina Redding MD Consults: 10/30/21 11:30 Consult to Respiratory Therapy Evaluate & Treat Comment: access Pt for possible home O2 needs Physician Instructions: Evaluate and treat Discharge provider: Danica Miller MD Summary Hospital Course Discharge Diagnosis: 1. Acute hypoxic respiratory failure secondary to COVID pneumonia 2. Depression Hospital Course: Patient was admitted to the hospital for acute hypoxic respiratory failure secondary to COVID pneumonia. She was placed on oxygen. She was given Decadron and remdesivir. She had improvement in her respiratory status. Was taken off oxygen last evening. The patient did have continued nausea. She was however able to tolerate both breakfast and lunch. She continues to have low-grade fevers of 99.7-100.4. Overall she feels significantly improved since admission. He was able to ambulate and her oxygenation at rest is 94% in goes up to 97%. The patient does have a pulse oximeter at home which she will be using. She has made steady improvement and deemed appropriate for discharge home. Status at Discharge Cognitive/behavioral status at discharge: oriented Functional status at discharge: independent ambulation Overall status at discharge: patient is progressing back to baseline Exam Vital Signs (past 8 hours): - 12/12/21 06:54 10/30/21 08:15 10/30/21 08:37 Temperature 99.4 F 99.7 F H Pulse Rate 79 Respiratory Rate 20 Blood Pressure 101/59 L Pulse Oximetry 94 94 10/30/21 09:02 Temperature Pulse Rate Respiratory Rate Blood Pressure Pulse Oximetry 97 Oxygen Delivery Method Room Air Oxygen Flow Rate 0 Narrative Exam Narrative: Pleasant female resting comfortably in no obvious distress Resp Other: Lungs decreased but clear to auscultation Cardio Other: Cardiac exam: Regular rate and rhythm normal S1-S2 GI Other: Abdomen: Soft nontender nondistended Extrem Other: Extremities: No edema Objective Labs Result Diagrams: 10/30/21 05:30 10/30/21 05:30 Labs: Laboratory Results - last 24 hr 10/30/21 10/30/21 05:30 05:30 WBC 4.6 D RBC 4.11 Hgb 12.0 Hct 36.0 MCV 87.7 MCH 29.2 MCHC 33.2 RDW 12.9 Plt Count 116 L Sodium 138 Potassium 3.8 Chloride 104 Carbon Dioxide 32 BUN 17 Creatinine 0.72 Estimated GFR > 60.0 BUN/Creatinine Ratio 23.6 H Glucose 94 Calcium 8.4 PFSH Medical History (Updated 10/28/21 @ 19:58 by Woo Poon MD) Depression Surgical History History of carpal tunnel repair History of spinal fusion Status post tonsillectomy and adenoidectomy Social History household members: significant other Smoking Status: Former smoker alcohol intake: never Discharge Assessment & Plan Assessment and Plan Assessment: 1. Acute Hypoxic Respiratory Failure, secondary to Covid-19 pneumonia 2. depression Plan of Treatment: discharge home Discharge Plan Discharge Plan Patient Disposition: Home Discharge orders & Medications Prescriptions: New guaifenesin [Mucus Relief ER] 600 mg Tablet Extended Release 12hr 600 mg PO BID Qty: 15 0RF guaifenesin 100 mg/5 mL Liquid 200 mg PO Q4HR PRN (Reason: Cough) 7 Days 0RF Continued trazodone 50 mg tablet 50 mg PO BEDTIME 0RF clonazepam 0.5 mg tablet 0.5 mg PO DAILY PRN (Reason: Anxiety) 0RF acyclovir 400 mg tablet 1,200 mg PO BEDTIME 0RF bupropion HCl 100 mg tablet sustained-release 12 hr 100 mg PO BEDTIME 0RF lamotrigine 25 mg tablet 100 mg PO BEDTIME 0RF meloxicam 7.5 mg tablet 7.5 mg PO DAILY PRN (Reason: Pain (Scale Score 4-6)) 0RF paroxetine HCl 40 mg tablet 40 mg PO BEDTIME 0RF doxycycline hyclate 100 mg tablet 200 mg PO BEDTIME 0RF Follow up/Referrals: Martina Redding MD [Primary Care Provider] - Visit Report/Discharge Packet Instructions: DI for COVID-19 (Suspected or Confirmed ), How to Care for Someone with COVID-19, About the COVID-19 Vaccine Discharge Data Primary Care Provider: Martina Redding Quality VTE Deep Vein Thrombosis/Pulmonary Embolism Present on Admission: No
--- NOTE | 2021-10-30 16:26 | PC.NURSE ---
Day shift: Paperwork signed and all questions answered. Pt has all personal belongings and MD scripts. Encouraged to isolate at home per d/c paperwork. Also encouraged to get Covid 19 vaccine in the next couple months. Pt tolerating being on RA and ambulating in room. Left unit at approx 1630. Taken to car her spouse in driving in by [employer].
== END 2021-10-30 16:30 | disposition home or self-care (01) | DRG 177 ==
LOC: ED 11:19 → AC 14:15
PROVIDERS: Admitting Provider Internal Medicine; Emergency Provider Emergency Medicine; Family Provider Family Medicine; PCP Family Medicine; Referring Provider Emergency Medicine; Visit Provider Internal Medicine
DX: U07.1 COVID-19 (principal); J12.82 Pneumonia due to coronavirus disease 2019; J96.01 Acute respiratory failure with hypoxia; F32.A Depression, unspecified; Z87.891 Personal history of nicotine dependence
CPT/HCPCS: 36415; 71045; 71275; 80048; 80053; 81001; 81025; 82550; 82728; 83605; 83615; 83690; 83880; 84145; 84484; 85025; 85027; 85379; 86140; 87040; 87086; 87635; 93005; 93010; 94762; 96361; 96365; 96375; 99285; 99291; C9803; J1100; J1650; J1885; J2405; J2765

== ENCOUNTER → 2025-04-22 14:34 | Outpatient (ROUT) | payer OTHER, SELFPAY ==
[2021-10-28 22:52] VITALS: BMI 25.0
[2025-04-22 15:44] LABS: Thyroid Stimulating Hormone 0.782 uIU/mL (0.47-4.68)
[2025-04-22 16:49] LABS: Follicle Stimulating Hormone 69.5 mIU/mL
[2025-04-22 16:50] LABS: Progesterone, Total 0.19 ng/mL
[2025-04-22 19:09] LABS: HIV 1 & 2 Ab/Ag 4th Gen Combo NEGATIVE (NEGATIVE)
[2025-04-24 04:36] LABS: RPR Screen Non Reactive (Non Reactive)
[2025-04-27 22:36] LABS: Estrogen 45 pg/mL (.)
== END ==
PROVIDERS: Visit Provider Family Medicine
DX: N95.1 Menopausal and female climacteric states (principal); Z20.2 Contact with and (suspected) exposure to infections with a predominantly sexual mode of transmission
CPT/HCPCS: 82672; 83001; 84144; 84443; 86592; 87389